=== PATIENT | female | born 1950 | race Caucasian/White ===

== ENCOUNTER 2018-12-20 08:36 | Day surgery (SDC) | payer OTHER ==
[~2018-12-20] VITALS: Ht 154.9 cm; Wt 50.7 kg
[~2018-12-20 08:36] MED LIST: NASACORT10.8 ML; QC CALCIUM 6001 EAC1 PO; SIMV10 PO; VITAMIN D32000 UNI1 PO
--- NOTE | 2018-12-20 09:31 | NUR ---
12/20/18 0931 Dante Puente CALL LIGHT WITHIN REACH.
--- NOTE | 2018-12-20 10:19 | NUR ---
12/20/18 1019 Ya White (Leena ROBINOL 0.2MG IV GIVEN PRIOR TO START OF PROCEDURE.
--- NOTE | 2018-12-20 10:56 | NUR ---
12/20/18 1056 Ya White (Leena PT STS SLIGHT HEADACHE POST PROCEDURE. RATES PAIN /10. DENIES PAIN MEDICATION OR FURTHER NEEDS.
== END 2018-12-20 10:44 | disposition home or self-care (01) ==
LOC: ORSCSDS 08:36
PROVIDERS: Internal Medicine Gastroenterology
PROC: 0DB68ZX Excision of Stomach, Via Natural or Artificial Opening Endoscopic, Diagnostic (ICD-10-PCS; principal; 2018-12-20 10:00)
PROC: 0DB98ZX Excision of Duodenum, Via Natural or Artificial Opening Endoscopic, Diagnostic (ICD-10-PCS; principal; 2018-12-20 10:00)
DX: K21.9 Gastro-esophageal reflux disease without esophagitis (principal); R13.10 Dysphagia, unspecified; K29.70 Gastritis, unspecified, without bleeding; K29.80 Duodenitis without bleeding; K22.2 Esophageal obstruction; E03.9 Hypothyroidism, unspecified
CPT/HCPCS: 88305; 88342; J2704; J7120

== ENCOUNTER → 2021-12-02 | Outpatient (CLI) | payer OTHER | END | disposition home or self-care (01) | LOC: LAB 18:07 → LAB SHORT 18:07 | DX: N39.0 Urinary tract infection, site not specified (principal) | CPT/HCPCS: 87086 ==

== ENCOUNTER → 2021-12-18 | Outpatient (CLI) | payer OTHER ==
[2021-12-19 09:19] LABS: Candida species (DNA Probe) Negative (NEGATIVE); G. vaginalis (DNA Probe) Negative (NEGATIVE); T. vaginalis (DNA Probe) Negative (NEGATIVE)
== END | disposition home or self-care (01) ==
LOC: LAB 16:55 → LAB SHORT 16:55
PROVIDERS: Family Medicine
DX: N76.0 Acute vaginitis (principal)
CPT/HCPCS: 87480; 87510; 87660